=== PATIENT | male | born 1965 | race Caucasian/White ===

== ENCOUNTER 2018-10-12 10:00 | Inpatient (IN) | payer MEDICARE ==
[2018-10-15] MEDS ORDERED: Celecoxib 200 MG Cap PO ONE (10:00)
[2018-10-15] MEDS ORDERED: Acetaminophen 500 MG Tab PO ONE (10:00)
[2018-10-15] MEDS ORDERED: Gabapentin 300 MG Cap PO ONE (10:00)
[2018-10-15] MEDS ORDERED: Scopolamine 1.5 MG Transdermal Patch TRDERM ONE (10:00)
[2018-10-15] MEDS ORDERED: cefOXitin 2 GM Vial ONE (10:14)
[2018-10-15] MEDS ORDERED: Dextrose 5%-Lactated Ringers 1,000 ML IV SCH (10:30)
[2018-10-15] MEDS ORDERED: Rocuronium 50 MG/5 ML Vial ONE ×2 (10:41→14:33)
[2018-10-15] MEDS ORDERED: Glycopyrrolate 0.2 MG/ML 5 ML MDV ONE (10:41)
[2018-10-15] MEDS ORDERED: fentaNYL 250 MCG/5 ML SDV ONE ×2 (10:41→14:16)
[2018-10-15] MEDS ORDERED: Ondansetron 4 MG/2 ML SDV ONE (10:41)
[2018-10-15] MEDS ORDERED: Succinylcholine 200 MG/10 ML MDV ONE (10:41)
[2018-10-15] MEDS ORDERED: Propofol 200 MG/20 ML SDV ONE (10:41)
[2018-10-15] MEDS ORDERED: Dexamethasone 4 MG/ML SDV ONE (10:41)
[2018-10-15] MEDS ORDERED: Neostigmine Methylsulfate 1 MG/ML 5 ML Syringe ONE (10:41)
[2018-10-15] MEDS ORDERED: cefOXitin 2 GM in Sodium Chloride 0.9% 50 ML IV ONE (11:30)
[2018-10-15] MEDS ORDERED: Ketamine 500 MG/5 ML MDV IV SCH (11:45)
[2018-10-15] MEDS ORDERED: Lidocaine 0.4%/D5W 2 GM/500 ML BAG IV SCH (11:45)
[2018-10-15] MEDS ORDERED: Lidocaine 2% 100 MG/5 ML Syringe IVPUSH SCH (11:45)
[2018-10-15] MEDS ORDERED: Ketamine 50 MG in Sodium Chloride 0.9% 49.5 ML IV SCH (11:45)
[2018-10-15] MEDS ORDERED: Atropine 0.4 MG/ML SDV ONE (14:05)
[2018-10-15] MEDS ORDERED: hydrOXYzine HCl 100 MG/2 ML SDV IM ONE (15:53)
[2018-10-15] MEDS ORDERED: fentaNYL 100 MCG/2 ML SDV IVPUSH ONE ×2 (15:53→16:07)
[2018-10-15] MEDS ORDERED: diphenhydrAMINE 50 MG/ML SDV IVPUSH PRN (17:00)
[2018-10-15] MEDS ORDERED: HYDROmorphone 0.5 MG/0.5 ML Syringe IVPUSH PRN (17:00)
[2018-10-15] MEDS ORDERED: hydrOXYzine HCl 100 MG/2 ML SDV IM PRN (17:00)
[2018-10-15] MEDS ORDERED: Metoclopramide 10 MG/2 ML SDV IVPUSH PRN (17:00)
[2018-10-15] MEDS ORDERED: Labetalol 20 MG/4 ML Syringe IVPUSH PRN (17:00)
[2018-10-15] MEDS ORDERED: HYDROmorphone 1 MG/ML Syringe IV PRN (17:00)
[2018-10-15] MEDS ORDERED: Ondansetron 4 MG/2 ML SDV IVPUSH PRN (17:00)
[2018-10-15] MEDS: Acetaminophen Soln 650 MG/20.3 ML UD Cup PO SCH ×2 (17:31→23:39)
[2018-10-15] MEDS: MVI, Adult with Vitamin K 10 ML, Thiamine 200 MG, Chromium/Copper/Mang/Selen/Zn 1 ML in... IV SCH ×4 (17:31)
[2018-10-15] MEDS ORDERED: Pantoprazole 40 MG Vial IVPUSH SCH (18:00)
[2018-10-15] MEDS: Heparin Sodium 5,000 Units/ML Vial SUBCUT SCH (19:46)
[2018-10-15] MEDS: cefOXitin 2 GM in Sodium Chloride 0.9% 50 ML IV SCH (19:47)
[2018-10-15] MEDS: Gabapentin 250 MG/5 ML Solution ML 470 ML Bottle PO SCH (21:36)
[2018-10-15] MEDS ORDERED: Iohexol 647 MG/ML 50 ML SDV PO SCH (23:00)
[2018-10-16] MEDS: Dextrose 5%-Lactated Ringers 1,000 ML IV SCH ×2 (01:12→07:24)
[2018-10-16] MEDS: cefOXitin 2 GM in Sodium Chloride 0.9% 50 ML IV SCH ×4 (01:14→19:27)
--- NOTE | 2018-10-16 04:22 | CRLCR ---
INDICATION: Louie-en-Y evaluation TECHNIQUE: Abdominal radiograph 2 views after the patient was given oral contrast with no radiologist in attendance. COMPARISON: None FINDINGS: Bowel: Ingested oral contrast is seen in the distal esophagus, gastric lumen and gastrojejunostomy. Multiple calcified and fasting gallstones are seen in the right upper quadrant. A surgical drain is seen in the epigastrium and right upper quadrant. Most of the right flank and pelvis are excluded. No definite contrast extravasation is seen on 2 submitted post-contrast images. Soft tissue: No evidence of pneumoperitoneum present. Bone: Unremarkable for age. IMPRESSION: 1. No definite contrast extravasation is seen on 2 submitted post-contrast images. Dictated by Yusuf Mata MD @ 10/16/2018 4:20:15 AM Dictated by: Yusuf Mata MD @ 10/16/2018 04:20:20 (Electronically Signed)
[2018-10-16] MEDS: Heparin Sodium 5,000 Units/ML Vial SUBCUT SCH ×3 (05:28→19:53)
[2018-10-16] MEDS: Acetaminophen Soln 650 MG/20.3 ML UD Cup PO SCH ×4 (05:28→23:19)
[2018-10-16] MEDS: Celecoxib 200 MG Cap PO SCH (07:28)
[2018-10-16] MEDS ORDERED: Ondansetron 4 MG Tab.DIS PO PRN (08:31)
[2018-10-16] MEDS ORDERED: Dextrose 5%-Lactated Ringers 1,000 ML IV SCH (08:45)
[2018-10-16] MEDS: Gabapentin 250 MG/5 ML Solution ML 470 ML Bottle PO SCH ×3 (08:47→20:56)
[2018-10-16] MEDS: SCOPOLAMINE PATCH CHECK TOP SCH (08:48)
--- NOTE | 2018-10-16 11:23 | PN ---
DATE OF SERVICE: 10/16/2018 SUBJECTIVE: Hector is postoperative day #1. His upper GI this morning was normal. Vital signs have been stable. He has been up ambulating. Oral intake was not recorded. Urine output 1400. SANDER drain put out 205 mL. REVIEW OF SYSTEMS: Remainder of review of systems negative for any pertinent positives and negatives. OBJECTIVE: GENERAL: Hector Odom is a 52-year-old male. He is alert, orientated and talkative. VITAL SIGNS: TPR 97.6, 57, 16, and blood pressure 118/60. HEENT: Negative. NECK: Supple. HEART: Regular rate and rhythm. LUNGS: Clear. ABDOMEN: Dressings dry and intact. Abdominal binder is on. SANDER drain is intact and has put out 205 mL of a light pink drainage. EXTREMITIES: Without peripheral edema. ASSESSMENT: Conversion of sleeve gastrectomy to duodenal switch and liver biopsy for morbid obesity and hepatomegaly. Date of surgery 10/15/2018. Surgeon, Austyn Griffith MD. PLAN: 1. Decrease IV of D5LR to 100 mL per hour. 2. Dressing off, may shower. 3. Step-2 gastric bypass diet with no cereal. 4. Zofran ODT 4 mg q.4 hours p.r.n. nausea. 5. Communication order, 3 med cups per hour, record at bedside. 6. Good pulmonary toilet. 7. We will evaluate p.r.n. or in a.m. Karissa Constantino PA-C /[id number]
[2018-10-16] MEDS: MVI, Adult with Vitamin K 10 ML, Thiamine 200 MG, Chromium/Copper/Mang/Selen/Zn 1 ML in... IV SCH ×4 (15:02)
[2018-10-16] MEDS ORDERED: Pantoprazole 40 MG Delayed-Release Granules 1 Packet PO SCH (20:00)
[2018-10-17] MEDS: cefOXitin 2 GM in Sodium Chloride 0.9% 50 ML IV SCH (01:33)
[2018-10-17] MEDS: Heparin Sodium 5,000 Units/ML Vial SUBCUT SCH ×2 (03:47→11:03)
[2018-10-17] MEDS: Acetaminophen Soln 650 MG/20.3 ML UD Cup PO SCH ×2 (05:41→11:03)
[2018-10-17] MEDS: Celecoxib 200 MG Cap PO SCH (07:41)
[2018-10-17 07:45] VITALS: BP 119/49
[2018-10-17] MEDS: SCOPOLAMINE PATCH CHECK TOP SCH (08:44)
[2018-10-17] MEDS: Gabapentin 250 MG/5 ML Solution ML 470 ML Bottle PO SCH (08:44)
[2018-10-17] MEDS ORDERED: Cyanocobalamin (Vitamin B12) 1,000 MCG/ML SDV IM ONE (09:00)
--- NOTE | 2018-10-17 18:53 | OR ---
DATE OF PROCEDURE: 10/15/2018 PREOPERATIVE DIAGNOSIS: Persistent morbid obesity, status post sleeve gastrectomy. POSTOPERATIVE DIAGNOSES: 1. Persistent morbid obesity, status post sleeve gastrectomy. 2. Persistent hepatomegaly. OPERATIVE PROCEDURES: 1. Laparoscopic conversion of sleeve gastrectomy status to a duodenal switch (04788). 2. Joshua-Cut needle liver biopsy (88208). ANESTHESIA: General. TUBE COREMAKER: Karissa Constantino PA-C, and MAYRA Loya. INDICATION FOR PROCEDURE: A 52-year-old presenting for conversion of sleeve gastrectomy to duodenal switch status. The patient began, prior to the sleeve gastrectomy, with the weight in the mid 500s and is now down to about 350 pound range. With this, he continues to be moderately obese with a BMI well over 50, and after preop evaluation and discussion, he wished to proceed with conversion of his sleeve gastrectomy status to a duodenal switch. Potential risks of the procedure including bleeding, infection, leaks from the anastomosis, problems with bowel obstruction over time as well as possibility of cardiopulmonary, septic, or hemorrhagic complications leading to were all discussed and the patient wishes to proceed. DETAILS OF PROCEDURE: The patient was taken to the operating room and placed in a supine position. After general endotracheal anesthesia was induced, he was converted to a lithotomy position and the abdomen prepped and draped. At 18 cm inferior and then 5 cm left of the xiphoid process, a transverse incision was made and the peritoneal cavity entered under direct vision with an Optiview trocar. The peritoneal cavity was inflated to 15 mmHg pressure with CO2 and the laparoscope was reinserted. No underlying trocar insertion site injuries were seen. Bilateral transversus abdominis plane blocks were then placed and 6 additional trocars were placed across the upper mid abdomen. Gentle exploration showed a continued marked hepatomegaly with the liver being fatty infiltrated in appearance. Liver biopsy was obtained then from the left lobe of liver and minimal bleeding from needle biopsy site was controlled with electrocautery. The sleeve gastrectomy was then inspected and found to be somewhat dilated in the proximal extent. This was imbricated with some [id number] stitches of 2-0 Ethibond stitch. Following this, the small bowel was then traced back from the ileocecal valve 300 cm. This was brought up to the duodenum with a reasonable amount of tension. The mesentery was still quite fatty infiltrated and we felt that at this point the safest approach would be to create the duodenal ileostomy and not have the second Louie-en-Y anastomosis due to the mesenteric immobility making the second anastomosis somewhat of high risk than would be warranted. Once the small bowel was confirmed to be able to get up to the duodenum, the omentum on the distal-most stomach and then roughly 4 cm onto the area of the duodenum was divided with Harmonic scalpel. The duodenum was then encircled roughly 4 cm distal to the pylorus and divided there with 2 firings of the DAIJA villareal loads. The ileum was then brought up to the divided duodenum at the superior and inferior aspects of the divided duodenum. The small bowel was attached with some 3-0 Vicryl stitch. The duodenotomy and the enterostomy were then made and a 3 cm anastomosis created with a DAIJA villareal load. Three sutures were then placed on the common open end which allowed pulling it up the open area which was then closed off with a purple load. The secondary staple line was then reinforced with some 3-0 Vicryl seromuscular stitch and the anastomosis then reinforced with fibrin sealant as well. The leak test was accomplished with injection of air into the stomach by the orogastric tube and air was noted to flow across the duodenal ileostomy and no leaks were noted. At this point, no further problems noted. Of note, we were careful to maintain orientation of the small bowel such that the distal direction of the bowel would be the main route for food emptying out of the stomach. The proximal end was tacked up to the antrum of the stomach with 2 sutures of 0 Ethibond stitch to encourage the ingested food exiting the stomach to go into the distal direction. The trocars were then sequentially removed and the fascia at the 15 mm trocar sites was closed with 0 Vicryl stitch and the skin with 4-0 Vicryl stitch. A single drain had been placed through the left lateral trocar site and placed adjacent to the duodenal ileostomy. The patient was taken to the recovery room in satisfactory condition. Physician assistant kitchen manager, Karissa Constantino, played an essential role in assisting in this case, helping to position the patient, retract structures as needed, as well as suturing and cutting sutures when indicated. Her presence improved patient safety and decreased operative time. Austyn Griffith MD /[id number]
--- NOTE | 2018-10-20 10:34 | DISCH ---
FINAL DIAGNOSES: 1. Morbid obesity. 2. Hepatomegaly. 3. Mild chronic obstructive pulmonary disease. 4. Type 2 diabetes mellitus, in remission. 5. History of hypertension, in remission. OPERATIVE PROCEDURES: 1. This was done on 10/15/2018, diagnostic laparoscopy with conversion of sleeve gastrectomy to laparoscopic duodenal switch. 2. Joshua-Cut needle liver biopsy. HOSPITAL COURSE: This is a 52-year-old, status post previous sleeve gastrectomy, who has lost around 170 pounds, and has diabetes and hypertension. Upon admission, he still is in the 352-pound range, and at this point, it was elected to convert to a duodenal switch status. This was done on the date of admission, along with followup liver biopsy. Postoperatively, he has done well with no significant postoperative problems. He is tolerating diet satisfactory. He will be sent home with a liquid diet for four weeks. Otherwise, he will continue the home medications plus Tylenol 1 g q.6 hours p.r.n. and Celebrex 200 mg daily x1 week, then q day daily. Followup with Dr. Griffith at [facility] on 10/28/2018.
== END 2018-10-17 11:13 | disposition home or self-care (01) | DRG 621 ==
LOC: EDSTATUS 10-15 08:00 → JP.SDSSCHI 10-15 09:41 → JP.SDS 10-15 09:41 → JP.2SS 10-15 15:50
PROVIDERS: ADMIT Surgery; ATTEND Surgery
PROC: 0D194ZB Bypass Duodenum to Ileum, Percutaneous Endoscopic Approach (ICD-10-PCS; principal; 2018-10-15)
PROC: 0FB24ZX Excision of Left Lobe Liver, Percutaneous Endoscopic Approach, Diagnostic (ICD-10-PCS; 2018-10-15)
DX: E66.01 Morbid (severe) obesity due to excess calories (principal); Z68.43 Body mass index [BMI] 50.0-59.9, adult; R16.0 Hepatomegaly, not elsewhere classified; K76.0 Fatty (change of) liver, not elsewhere classified; Z98.84 Bariatric surgery status; Z98.0 Intestinal bypass and anastomosis status; Z87.891 Personal history of nicotine dependence; M19.90 Unspecified osteoarthritis, unspecified site; Z88.1 Allergy status to other antibiotic agents; Z88.0 Allergy status to penicillin; Z88.8 Allergy status to other drugs, medicaments and biological substances; J44.9 Chronic obstructive pulmonary disease, unspecified; Z86.39 Personal history of other endocrine, nutritional and metabolic disease; Z86.79 Personal history of other diseases of the circulatory system
CPT/HCPCS: 36415; 74240; 80053; 82962; 83735; 83880; 84100; 85025; 86850; 86900; 86901; 88307; 88313; A9270-GY; C9113; J0171; J0330; J0461; J0694; J1100; J1644; J2001; J2405; J2704; J2710; J2795; J3010; J3410; J3411; J3420; J3490; J7042; J7050; Q9967